=== PATIENT | female | born 1940 | race Caucasian/White ===

== ENCOUNTER 2016-11-02 07:28 | Inpatient (IN) | payer MEDICARE ==
--- NOTE | ~2016-11-02 | DS ---
Discharge Summary [place] [id number] [place]. [address] NAME: ANIL WALTER : 36 STATUS : DIS IN PAT#: [id number] AGE: 76 ADM/REG DATE : 11/02/16 MR#: [id number] REPORT SERV DATE: 11/13/16 DICTATED BY: DATE: REPORT STATUS : Draft TRANSCRIBED BY: MODL DATE: 11/12/16 ADMISSION DATE: 11/02/2016 DISCHARGE DATE: 11/12/2016 DISCHARGE DIAGNOSES: 1. Dysphagia/esophagitis/gastric ulcer/hiatal hernia. 2. Chronic obstructive pulmonary disease. 3. Hypertension. 4. Bipolar. 5. Acute kidney injury. 6. Debility. 7. Hyperkalemia. 8. Tobacco abuse. DISCHARGE MEDICATIONS: Include Norvasc 10 mg p.o. daily, Habitrol 21 mg topical patch daily, Protonix 40 mg p.o. b.i.d., Seroquel 50 mg p.o. at bedtime, Dulera 200/5 mcg two puffs inhalation b.i.d., MiraLAX one packet p.o. daily p.r.n. constipation, albuterol MDI 90 mcg/actuation two puffs q.4-6 hours p.r.n. for shortness of breath. CONSULTING PHYSICIAN: Include Dr. Pancho Jimenez with GI Medicine. For full H and P, please refer to Dr. Akira Acosta's dictation on 11/02/2016. Please also see consultation report from Dr. Dom Billings as well as Dr. Blane Ramírez. Please also see Lucy Coreas's interim discharge summary on 11/10/2016. PROCEDURES: The patient underwent an EGD on 11/03/2016, which demonstrated esophagitis, gastric ulcer, hiatal hernia. HOSPITAL COURSE/PROBLEM LIST: 1. Dysphagia, esophagitis, gastric ulcer, hiatal hernia. I will continue the patient on Protonix p.o. after discharge, and the patient will follow up with GI medicine in three months. 2. COPD. The patient reports no home medications when she came in. She smoked one pack per day. I discussed smoking cessation at length and we will continue her 21 mg nicotine patch after discharge. I will also continue her Dulera as well as albuterol MDI. 3. Hypertension. This is controlled with a systolic blood pressure between 100s and 140s with amlodipine, which I will continue upon discharge. 4. Bipolar. Dr. Blane Ramírez was consulted and prescribed the patient's Seroquel and mirtazapine, which he wrote prescriptions for. She will follow up with mental health post discharge. 5. Acute kidney injury. Creatinine today is stable at 1.23. We will make an appointment for her with her primary care provider in one to two weeks as well as followup BMP to monitor creatinine prior to her appointment. 6. Debility. PT evaluated the patient and recommended inpatient rehab. We set this up with [facility]; however, the patient does not want to go to Discharge Summary [address] [place]. [address] NAME: ANIL WALTER : 38 STATUS : DIS IN PAT#: [id number] AGE: 76 ADM/REG DATE : 11/02/16 MR#: [id number] REPORT SERV DATE: 11/13/16 DICTATED BY: DATE: REPORT STATUS : Draft TRANSCRIBED BY: NANCY DATE: 11/12/16 inpatient rehab. She would like to be discharged home with her son, so we will set up home health physical therapy for her. I discussed that this is not the best treatment plan, but if this is what she wants, this is what we will do. 7. Hyperkalemia. Today, the patient's potassium is 4.9 and I will follow up with a BMP prior to PCP appointment. 8. Tobacco abuse. Again, I discussed tobacco sensation, and I will continue the patient's nicotine patch post discharge. This discharge took greater than 30 minutes for medication reconciliation, prescription writing, coordinating with case management for discharge planning. DICTATED BY: CHELA Mayfield/NANCY Ramón Nuñez NP / [id number] CC: Akira Acosta MD
--- NOTE | ~2016-11-02 | HP ---
History And Physical [place] [id number] [facility] [place]. [address] NAME: ANIL WALTER : 38 STATUS : ADM IN [facility]#: [id number] AGE: 76 ADM/REG DATE : 11/02/16 MR#: [id number] REPORT SERV DATE: 11/02/16 DICTATED BY: CLAUS GIVENS DATE: 11/02/16 REPORT STATUS : Draft TRANSCRIBED BY: MODL DATE: 11/02/16 DATE OF ADMISSION: 11/02/2016 REASON FOR ADMISSION: Dehydration, hypernatremia, and dysphagia. CHIEF COMPLAINT: "I have not been able to eat or drink anything in three days." HISTORY OF PRESENT ILLNESS: A 76-year-old white female with a history of bipolar disorder, COPD, does not follow up with any primary care doctor. She is not on any medications. She lives at home alone. She has not been able to eat or drink anything in the past three days. She denies painful swallowing, but just says she cannot get anything past her throat. She also complains of some chronic back pain, but that she has not been eating and drinking, she has felt very dehydrated, and that is what made her present to the [facility] ER. She admits to some nausea, vomiting, and gagging, but denies any fever, chills, diarrhea, chest pain, or shortness of breath. Of note, she is a very poor historian and some of her past medical history had to be obtained from reviewing previous admissions. PAST MEDICAL HISTORY: Hypertension, bipolar disorder, and COPD. PAST SURGICAL HISTORY: She had a left nephrectomy secondary to possible kidney cancer and a cholecystectomy. SOCIAL HISTORY: She smokes one pack per day when she can get cigarettes. She denies any illegal drug use or alcohol. She is of around 18 years. She has one son, one son in snf, and one daughter that lives maybe in [place]. FAMILY HISTORY: Denies any cancer. MEDICATIONS: None. ALLERGIES: NONE. PHYSICAL EXAMINATION: VITAL SIGNS: Blood pressure is 168/56, temperature is 98, pulse is 85, respirations 17, sat 94% on room air. GENERAL: She is no acute distress. Mildly ill appearing. Alert and oriented x4. HEENT: Normocephalic and atraumatic head. Extraocular muscles are intact. Oropharynx is clear. NECK: Supple. No JVD. CARDIAC: Regular rhythm. No murmurs, rubs, or gallops. PULMONARY: Coarse breath sounds. No wheezing. ABDOMEN: Soft, nontender, and nondistended. Positive bowel sounds. EXTREMITIES: Show no clubbing, cyanosis, or edema. NEUROLOGIC: No focal deficits. SKIN: Warm and dry. PSYCHIATRIC: The patient is cooperative. Mood is appropriate. History And Physical [address] [address] NAME: ANIL WALTER : 38 STATUS : ADM IN PAT#: [id number] AGE: 76 ADM/REG DATE : 11/02/16 MR#: [id number] REPORT SERV DATE: 11/02/16 DICTATED BY: CLAUS GIVENS. DATE: 11/02/16 REPORT STATUS : Draft TRANSCRIBED BY: NANCY DATE: 11/02/16 LABORATORY DATA: Show a normal CBC. Sodium is 150, chloride is 117. Alkaline phosphatase is 161. Chest x-ray shows chronic bronchitis. CT scan of the abdomen and pelvis without contrast shows hiatal hernia, bilateral adrenal adenomas similar to previous scan, and status post left nephrectomy. IMPRESSION: 1. Hypernatremia. 2. Dehydration. 3. Dysphagia with symptoms. 4. Chronic obstructive pulmonary disease without exacerbation. 5. Benign adrenal adenoma. 6. History of left nephrectomy. 7. Hypertension. 8. Bipolar disorder. PLAN: Plan is to do IV fluids, start her on PPI, start Dulera along with amlodipine and Seroquel. Consult unattached GI Medicine to evaluate for an EGD with likely dilation. She thinks she had a heat set operator at some point in time in [place], but cannot remember how long it has been since she saw him and who did not remember the name. The patient is a DNR/DNI. MARIE/NANCY Claus Givens MD / [id number] CC: Claus Givens MD
--- NOTE | ~2016-11-02 | EGD ---
EGD REPORT [facility] [address] [place] [address] NAME: ANIL WALTER : 38 STATUS : ADM IN PAT#: [id number] AGE: 76 ADM/REG DATE : 11/02/16 MR#: [id number] REPORT SERV DATE: 11/03/16 DICTATED BY: PANCHO MEDINA DATE: 11/03/16 REPORT STATUS : Draft TRANSCRIBED BY: [facility] DATE: 11/03/16 Endoscopy Center Patient Name: Anil Walter Date of : 1940 Attending MD: PANCHO MEDINA MD Procedure Date No Time: 11/03/2016 Procedure: Upper GI endoscopy Indications: Dysphagia Medicines: Monitored Anesthesia Care Complications: No immediate complications. Estimated blood loss: Minimal. Procedure: Pre-Anesthesia Assessment: - ASA Grade Assessment: III - A patient with severe systemic disease. After obtaining informed consent, the endoscope was passed under direct vision. Throughout the procedure, the patient's blood pressure, pulse, and oxygen saturations were monitored continuously. The GIF [id number] was introduced through the mouth, and advanced to the second part of duodenum. The upper GI endoscopy was accomplished without difficulty. The patient tolerated the procedure well. Findings: LA Grade C (one or more mucosal breaks continuous between tops of 2 or more mucosal folds, less than 75% circumference) esophagitis with no bleeding was found at the gastroesophageal junction. A medium-sized hiatus hernia was present. One non-bleeding cratered gastric ulcer with no stigmata of bleeding was found in the gastric antrum. The lesion was 8 mm in largest dimension. Biopsies were taken with a cold forceps for Helicobacter pylori testing. Estimated blood loss was minimal. The examined duodenum was normal. The cardia and gastric fundus were normal on retroflexion. Impression: - LA Grade C reflux esophagitis. - Hiatus hernia. - Gastric ulcer with clean base. Biopsied. Recommendation: - Return patient to [facility] for [facility] care. - Clear liquid diet today. - Use Protonix (pantoprazole) 40 mg PO BID for 12 weeks. - Await pathology results. - Return to GI clinic in 3 months. EGD REPORT [address] [address] NAME: ANIL WALTER : 38 STATUS : ADM IN [facility]#: [id number] AGE: 76 ADM/REG DATE : 11/02/16 MR#: [id number] REPORT SERV DATE: 11/03/16 DICTATED BY: PANCHO MEDINA DATE: 11/03/16 REPORT STATUS : Draft TRANSCRIBED BY: [email or web address] DATE: 11/03/16 Procedure Code(s): --- Professional --- 29585, Esophagogastroduodenoscopy, flexible, transoral; with biopsy, single or multiple Diagnosis Code(s): --- Professional --- K21.0, Gastro-esophageal reflux disease with esophagitis K44.9, Diaphragmatic hernia without obstruction or gangrene K25.9, Gastric ulcer, unspecified as acute or chronic, without hemorrhage or perforation R13.10, Dysphagia, unspecified CPT copyright 2013 [employer]. All rights reserved. The codes documented in this report are preliminary and upon clinical coder review may be revised to meet current compliance requirements. Pancho Medina MD PANCHO MEDINA MD 11/03/2016 3:31 PM This report has been signed electronically. Number of Addenda: 0 Note Initiated On: 11/03/2016 3:07 PM Scope Withdrawal Time 0 hours 0 minutes 0 seconds [address] [place] [address]
--- NOTE | ~2016-11-02 | IDS ---
Interim Discharge Summary [facility] [address] [place]. [address] NAME: ANIL WALTER : 38 STATUS : ADM IN [facility]#: [id number] AGE: 76 ADM/REG DATE : 11/02/16 MR#: [id number] REPORT SERV DATE: 11/10/16 DICTATED BY: PENNIE COREAS DATE: 11/10/16 REPORT STATUS : Draft TRANSCRIBED BY: MODJoey DATE: 11/10/16 ADMISSION DATE: 11/02/2016 DISCHARGE DATE: DATE OF DISCHARGE: Unknown. DATE OF INTERIM NOTE: 11/10/2016. INTERIM DIAGNOSES: 1. Dysphagia/esophagitis, on Protonix for approximately three weeks. 2. Chronic obstructive pulmonary disease without exacerbation, stable. 3. Hypertension, stable. 4. Bipolar disorder. 5. Acute kidney injury. 6. Debility. CONSULTATION: GI, Dr. Dom Billings, 11/02/2016. PROCEDURES AND IMAGIN. Chest x-ray on 11/02/2016; impression, chronic bronchitic pattern. No acute infiltrate or acute finding. 2. CT abdomen and pelvis on 11/02/2016; impression, the patient's pain is not identified with certainty and there is no acute finding on non-CT examination of the abdomen. Hiatal hernia and bilateral benign adrenal adenomas are similar to previous. Status post left nephrectomy, there is no CT evidence of recurrence. COURSE OF HOSPITAL STAY: Please refer to history and physical dictated by Dr. Acosta on 11/22/2016 as well as consultation note by Dr. Billings. This patient is a 76-year-old female with a history of bipolar, COPD, and hypertension. The patient presented to [facility] Emergency Room with complaints of dehydration and difficulty swallowing. Prior to this admission, the patient stated that she was unable to eat or drink for approximately three days. She is stating she was having painful swallowing. The patient was admitted to the hospital for further evaluation. 1. Dysphagia/esophagitis. GI was consulted. Imaging was obtained. The patient did undergo an EGD on 11/03/2016, which showed LA grade C reflux esophagitis. Hiatal hernia. Gastric ulcer with a clean base was biopsied. The patient was started on Protonix and will continue Protonix for approximately three weeks. The patient at this time is tolerating a GI soft diet. She denies any difficulty swallowing. 2. COPD without exacerbation. Respiratory is following the patient at this time. She is on 2 L of nasal cannula, O2 sats of 96%. 3. Hypertension. The patient denies being on medication. she does present with a history of hypertension. She is on Norvasc 10 mg p.o. daily. 4. Bipolar. The patient does present with a history of bipolar. Denies being on medication. At this time, she is on Seroquel 25 mg a.m., 50 mg at bedtime. She is tolerating it well. Interim Discharge Summary [id number] [facility] [place]. [address] NAME: ANIL WALTER : 38 STATUS : ADM IN [facility]#: [id number] AGE: 76 ADM/REG DATE : 11/02/16 MR#: [id number] REPORT SERV DATE: 11/10/16 DICTATED BY: PENNIE COREAS DATE: 11/10/16 REPORT STATUS : Draft TRANSCRIBED BY: NANCY DATE: 11/10/16 5. Acute kidney injury, unsure if the patient does have chronic kidney disease. BUN is 33, creatinine is 1.36. We will recheck labs in a.m. The patient encouraged fluids. 6. Debility. The patient has had complaints of weakness stating that she has been using a wheelchair at home. Physical Therapy has evaluated the patient and recommended residential facility. reservation manager is working with the patient regarding placement. DISCHARGE PLANNING: The patient has been living in an extended stay hotel. She lives with her son who was recently incarcerated. Has been unable at this time to place patient due to discharge planning. reservation manager is working with patient regarding placement. [facility]/NANCY Pennie Coreas NP / [id number] CC: Akira Acosta MD NO PCP
--- NOTE | ~2016-11-02 | CN ---
Consultation Report [place] [place]. [address] NAME: ANIL WALTER : 38 STATUS : ADM IN [facility]#: [id number] AGE: 76 ADM/REG DATE : 11/02/16 MR#: [id number] REPORT SERV DATE: 11/02/16 DICTATED BY: DOM BILLINGS DATE: 11/02/16 REPORT STATUS : Draft TRANSCRIBED BY: MODL DATE: 11/02/16 GI CONSULTATION DATE OF CONSULTATION: 11/02/2016 REASON FOR CONSULTATION: GI consult regarding dysphagia. HISTORY OF PRESENT ILLNESS: This is a 76-year-old woman, who presented to the emergency room with increasing difficulty swallowing. Her dysphagia has been present for three weeks and is for both liquids and solids. She has had intermittent nausea with nonbloody emesis, as well as GERD symptoms with acid regurgitation. No abdominal pain, stools normal, no blood. No history of endoscopy. ALLERGIES: PENICILLIN, SULFA, CODEINE, AND GRISEOFULVIN. HOME MEDICATIONS: None. MEDICAL HISTORY: Left nephrectomy for renal cell carcinoma. SOCIAL HISTORY: She smokes, but does not use alcohol significantly. FAMILY HISTORY: Negative for GI malignancy. REVIEW OF SYSTEMS: A complete review of systems was obtained and negative except that noted in the history of present illness. PHYSICAL EXAMINATION: VITAL SIGNS: She is currently afebrile. Temperature 97.5, pulse 67, respirations 15, and blood pressure 137/60. HEENT: Sclerae anicteric. NECK: Supple without lymphadenopathy. Pharynx is pink without exudate. LUNGS: Clear to auscultation bilaterally. HEART: Regular rate and rhythm. S1 and S2 heard without rubs or gallops. ABDOMEN: Normal bowel sounds. Belly is soft, nontender, nondistended without hepatosplenomegaly. EXTREMITIES: No pedal edema or rash. NEUROLOGIC: Alert oriented without focal deficit. Muscle exam is nontender. DATA: White blood cell count 7.4, hematocrit 38.6, MCV 93.5, platelets 313, BUN is 17, creatinine 1.0. Liver tests normal except an alkaline phosphatase of 161, and lipase 117. IMPRESSION: Dysphagia in the setting of chronic gastroesophageal reflux disease, question stricture. Consultation Report [address]. [address] NAME: ANIL WALTER DOB: [birth year] STATUS : ADM IN PAT#: [id number] AGE: 76 ADM/REG DATE : 11/02/16 MR#: [id number] REPORT SERV DATE: 11/02/16 DICTATED BY: DOM BILLINGS DATE: 11/02/16 REPORT STATUS : Draft TRANSCRIBED BY: NANCY DATE: 11/02/16 RECOMMENDATIONS: 1. Protonix twice daily. 2. Liquid diet for now. 3. An EGD to follow. 4. CC/BRYANNAL Dom Billings M.D. / [id number] CC: Akira Acosta MD
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
[2016-11-02 06:24] LABS: BASOPHILS 0.8 %; BASOPHILS ABSOLUTE 0.06 10/3/uL (0.0-0.16); EOSINOPHILS 3.6 %; EOSINOPHILS ABSOLUTE 0.27 10/3/uL (0.0-0.53); ER CBC TAT 0 Hrs 03 Mins; HEMATOCRIT 38.6 % (36.0-48.0); HEMOGLOBIN 12.7 g/dL (12.0-16.0); IMMATURE GRANULOCYTES 0.1 %; IMMATURE GRANULOCYTES ABSOLUTE 0.01 10/3/uL (0.0-0.11); LYMPHOCYTES 14.5 %; LYMPHOCYTES ABSOLUTE 1.07 10/3/uL (0.67-4.30); MANUAL DIFF NO %; MEAN CORPUS HGB CONC 32.9 g/dL (32.0-36.0); MEAN CORPUSCULAR HEMOGLOB 30.8 pg (26.0-34.0); MEAN CORPUSCULAR VOLUME 93.5 fL (80-100); MEAN PLATELET VOLUME 10.6 fL (9.2-13.0); MONOCYTES 6.2 %; MONOCYTES ABSOLUTE 0.46 10/3/uL (0.21-1.20); NEUTROPHILS 74.8 %; NEUTROPHILS ABSOLUTE 5.53 10/3/uL (2.02-8.40); PLATELET COUNT 313 10/3/uL (150-400); RBC DISTRIBUTION WIDTH 15.3 % (12.0-16.0); RED CELL COUNT 4.13 10/6/uL (4.0-5.6); WHITE BLOOD CELLS 7.4 10/3/uL (4.5-10.5)
[2016-11-02 06:39] LABS: A/G RATIO 0.9 (0.7-1.9); ALBUMIN 3.4 G/DL (3.5-5.0); ALKALINE PHOSPHATASE 161 U/L (45-117); BUN (BLOOD UREA NITROGEN) 17 MG/DL (6-23); CHLORIDE, SERUM 117 MMOL/L (96-112); CO2 (CARBON DIOXIDE) 26 MMOL/L (24-34); GFR AFRICAN AMERICAN 62 ML/MIN (>=60); GFR NON AFRICAN AMERICAN 54 ML/MIN (>=60); GLOBULIN 3.8 G/DL (2.5-4.1); GLUCOSE, SERUM 99 MG/DL (60-99); SGOT(AST) 20 U/L (5-40); SGPT(ALT) 11 U/L (5-65); SODIUM, SERUM 150 MMOL/L (135-148); TOTAL BILIRUBIN 0.4 MG/DL (0-1.2); TOTAL PROTEIN 7.2 G/DL (6.0-8.5)
[~2016-11-02 07:28] MED LIST: ACCUNE1 INH; NORV10 PO; PRILOSEC40 MG PO; PROAMAT5 PO; SEROQUEL200 MG PO; SPIRIVA INH; SYMBICORT 160/41 INH INH; ZOL50 PO
[2016-11-02] MEDS ORDERED: *DENIES (09:08)
[2016-11-02 14:49] LABS: INTERNATIONAL NORMAL RATI 1.2 UNITS (-); PARTIAL THROMBO TIME 24.5 SEC (22.5-37.2); PROTIME (NOT ORD) 14.7 SEC (12.0-14.5)
[2016-11-03 04:46] LABS: BASOPHILS 0.6 %; BASOPHILS ABSOLUTE 0.04 10/3/uL (0.0-0.16); EOSINOPHILS 5.3 %; EOSINOPHILS ABSOLUTE 0.35 10/3/uL (0.0-0.53); HEMATOCRIT 32.2 % (36.0-48.0); HEMOGLOBIN 10.5 g/dL (12.0-16.0); IMMATURE GRANULOCYTES 0.2 %; IMMATURE GRANULOCYTES ABSOLUTE 0.01 10/3/uL (0.0-0.11); LYMPHOCYTES 24.1 %; MEAN CORPUS HGB CONC 32.6 g/dL (32.0-36.0); MEAN CORPUSCULAR HEMOGLOB 30.1 pg (26.0-34.0); MEAN CORPUSCULAR VOLUME 92.3 fL (80-100); MEAN PLATELET VOLUME 10.4 fL (9.2-13.0); MONOCYTES 7.1 %; MONOCYTES ABSOLUTE 0.47 10/3/uL (0.21-1.20); NEUTROPHILS 62.7 %; NEUTROPHILS ABSOLUTE 4.17 10/3/uL (2.02-8.40); PLATELET COUNT 239 10/3/uL (150-400); RBC DISTRIBUTION WIDTH 14.8 % (12.0-16.0); RED CELL COUNT 3.49 10/6/uL (4.0-5.6); WHITE BLOOD CELLS 6.6 10/3/uL (4.5-10.5)
[2016-11-03 04:47] LABS: MANUAL DIFF NO %
[2016-11-03 04:57] LABS: CALCIUM, SERUM 8.1 MG/DL (8.5-10.4); CHLORIDE, SERUM 108 MMOL/L (96-112); CO2 (CARBON DIOXIDE) 25 MMOL/L (24-34); CREATININE 0.89 MG/DL (0.55-1.02); GFR AFRICAN AMERICAN 72 ML/MIN (>=60); GFR NON AFRICAN AMERICAN 62 ML/MIN (>=60); GLUCOSE, SERUM 107 MG/DL (60-99); PHOSPHORUS, SERUM 2.6 MG/DL (2.5-4.5); POTASSIUM, SERUM 3.2 MMOL/L (3.5-5.3)
[2016-11-03 05:00] LABS: BUN (BLOOD UREA NITROGEN) 11 MG/DL (6-23); SODIUM, SERUM 139 MMOL/L (135-148)
[2016-11-04 04:27] LABS: BASOPHILS 0.4 %; BASOPHILS ABSOLUTE 0.03 10/3/uL (0.0-0.16); EOSINOPHILS 4.7 %; EOSINOPHILS ABSOLUTE 0.32 10/3/uL (0.0-0.53); HEMATOCRIT 34.9 % (36.0-48.0); HEMOGLOBIN 11.7 g/dL (12.0-16.0); IMMATURE GRANULOCYTES 0.1 %; IMMATURE GRANULOCYTES ABSOLUTE 0.01 10/3/uL (0.0-0.11); LYMPHOCYTES 11.7 %; MANUAL DIFF NO %; MEAN CORPUS HGB CONC 33.5 g/dL (32.0-36.0); MEAN CORPUSCULAR VOLUME 92.6 fL (80-100); MEAN PLATELET VOLUME 10.3 fL (9.2-13.0); MONOCYTES 5.1 %; MONOCYTES ABSOLUTE 0.35 10/3/uL (0.21-1.20); NEUTROPHILS ABSOLUTE 5.32 10/3/uL (2.02-8.40); PLATELET COUNT 257 10/3/uL (150-400); RBC DISTRIBUTION WIDTH 14.4 % (12.0-16.0); RED CELL COUNT 3.77 10/6/uL (4.0-5.6); WHITE BLOOD CELLS 6.8 10/3/uL (4.5-10.5)
[2016-11-04 04:37] LABS: BUN (BLOOD UREA NITROGEN) 12 MG/DL (6-23); CALCIUM, SERUM 8.5 MG/DL (8.5-10.4); CHLORIDE, SERUM 109 MMOL/L (96-112); CO2 (CARBON DIOXIDE) 25 MMOL/L (24-34); CREATININE 1.04 MG/DL (0.55-1.02); GFR AFRICAN AMERICAN 60 ML/MIN (>=60); GFR NON AFRICAN AMERICAN 51 ML/MIN (>=60); GLUCOSE, SERUM 88 MG/DL (60-99); PHOSPHORUS, SERUM 3.7 MG/DL (2.5-4.5); POTASSIUM, SERUM 3.4 MMOL/L (3.5-5.3); SODIUM, SERUM 142 MMOL/L (135-148)
[2016-11-05 06:55] LABS: BASOPHILS 0.4 %; BASOPHILS ABSOLUTE 0.02 10/3/uL (0.0-0.16); EOSINOPHILS 5.1 %; EOSINOPHILS ABSOLUTE 0.29 10/3/uL (0.0-0.53); HEMATOCRIT 35.9 % (36.0-48.0); HEMOGLOBIN 11.9 g/dL (12.0-16.0); IMMATURE GRANULOCYTES 0.2 %; IMMATURE GRANULOCYTES ABSOLUTE 0.01 10/3/uL (0.0-0.11); LYMPHOCYTES 19.5 %; LYMPHOCYTES ABSOLUTE 1.11 10/3/uL (0.67-4.30); MEAN CORPUS HGB CONC 33.1 g/dL (32.0-36.0); MEAN CORPUSCULAR HEMOGLOB 30.7 pg (26.0-34.0); MEAN CORPUSCULAR VOLUME 92.5 fL (80-100); MEAN PLATELET VOLUME 10.4 fL (9.2-13.0); MONOCYTES 8.4 %; MONOCYTES ABSOLUTE 0.48 10/3/uL (0.21-1.20); NEUTROPHILS 66.4 %; NEUTROPHILS ABSOLUTE 3.79 10/3/uL (2.02-8.40); PLATELET COUNT 270 10/3/uL (150-400); RBC DISTRIBUTION WIDTH 14.7 % (12.0-16.0); RED CELL COUNT 3.88 10/6/uL (4.0-5.6); WHITE BLOOD CELLS 5.7 10/3/uL (4.5-10.5)
[2016-11-05 06:56] LABS: MANUAL DIFF NO %
[2016-11-05 09:00] LABS: BUN (BLOOD UREA NITROGEN) 12 MG/DL (6-23); CALCIUM, SERUM 8.9 MG/DL (8.5-10.4); CHLORIDE, SERUM 107 MMOL/L (96-112); CO2 (CARBON DIOXIDE) 26 MMOL/L (24-34); CREATININE 1.06 MG/DL (0.55-1.02); GFR AFRICAN AMERICAN 58 ML/MIN (>=60); GFR NON AFRICAN AMERICAN 50 ML/MIN (>=60); GLUCOSE, SERUM 99 MG/DL (60-99); SODIUM, SERUM 137 MMOL/L (135-148)
[2016-11-05 09:01] LABS: POTASSIUM, SERUM 4.3 MMOL/L (3.5-5.3)
[2016-11-07 04:56] LABS: BASOPHILS 0.3 %; BASOPHILS ABSOLUTE 0.02 10/3/uL (0.0-0.16); EOSINOPHILS 6.4 %; EOSINOPHILS ABSOLUTE 0.39 10/3/uL (0.0-0.53); HEMATOCRIT 32.7 % (36.0-48.0); HEMOGLOBIN 10.6 g/dL (12.0-16.0); IMMATURE GRANULOCYTES 0.5 %; IMMATURE GRANULOCYTES ABSOLUTE 0.03 10/3/uL (0.0-0.11); LYMPHOCYTES 18.2 %; LYMPHOCYTES ABSOLUTE 1.11 10/3/uL (0.67-4.30); MEAN CORPUS HGB CONC 32.4 g/dL (32.0-36.0); MEAN CORPUSCULAR HEMOGLOB 30.4 pg (26.0-34.0); MEAN CORPUSCULAR VOLUME 93.7 fL (80-100); MONOCYTES 5.2 %; MONOCYTES ABSOLUTE 0.32 10/3/uL (0.21-1.20); NEUTROPHILS 69.4 %; NEUTROPHILS ABSOLUTE 4.23 10/3/uL (2.02-8.40); PLATELET COUNT 265 10/3/uL (150-400); RBC DISTRIBUTION WIDTH 15.4 % (12.0-16.0); RED CELL COUNT 3.49 10/6/uL (4.0-5.6); WHITE BLOOD CELLS 6.1 10/3/uL (4.5-10.5)
[2016-11-07 05:02] LABS: MANUAL DIFF NO %
[2016-11-07 05:21] LABS: CALCIUM, SERUM 8.8 MG/DL (8.5-10.4); CHLORIDE, SERUM 100 MMOL/L (96-112); CREATININE 1.07 MG/DL (0.55-1.02); GFR AFRICAN AMERICAN 58 ML/MIN (>=60); GFR NON AFRICAN AMERICAN 50 ML/MIN (>=60); PHOSPHORUS, SERUM 1.9 MG/DL (2.5-4.5); SODIUM, SERUM 137 MMOL/L (135-148)
[2016-11-07 05:27] LABS: BUN (BLOOD UREA NITROGEN) 24 MG/DL (6-23); CO2 (CARBON DIOXIDE) 32 MMOL/L (24-34); GLUCOSE, SERUM 70 MG/DL (60-99)
[2016-11-07 19:55] LABS: ASCORBIC ACID (UR NOT ORDER) 20 (NEG); BILIRUBIN, URINE NEGATIVE (NEG); KETONE, URINE NEGATIVE (NEG); LEUKOCYTE ESTERASE(NOT OR TRACE (NEG); WBC (NOT ORDERED) (RFLEX) 3 (0-5)
[2016-11-08 06:43] LABS: BASOPHILS 0.2 %; BASOPHILS ABSOLUTE 0.01 10/3/uL (0.0-0.16); EOSINOPHILS 6.1 %; EOSINOPHILS ABSOLUTE 0.38 10/3/uL (0.0-0.53); HEMOGLOBIN 11.9 g/dL (12.0-16.0); IMMATURE GRANULOCYTES 0.3 %; IMMATURE GRANULOCYTES ABSOLUTE 0.02 10/3/uL (0.0-0.11); LYMPHOCYTES 20.2 %; LYMPHOCYTES ABSOLUTE 1.25 10/3/uL (0.67-4.30); MEAN CORPUS HGB CONC 32.8 g/dL (32.0-36.0); MEAN CORPUSCULAR HEMOGLOB 30.5 pg (26.0-34.0); MEAN CORPUSCULAR VOLUME 93.1 fL (80-100); MONOCYTES 6.1 %; MONOCYTES ABSOLUTE 0.38 10/3/uL (0.21-1.20); NEUTROPHILS 67.1 %; NEUTROPHILS ABSOLUTE 4.14 10/3/uL (2.02-8.40); PLATELET COUNT 257 10/3/uL (150-400); RBC DISTRIBUTION WIDTH 15.2 % (12.0-16.0); WHITE BLOOD CELLS 6.2 10/3/uL (4.5-10.5)
[2016-11-08 06:52] LABS: BUN (BLOOD UREA NITROGEN) 28 MG/DL (6-23); CALCIUM, SERUM 9.2 MG/DL (8.5-10.4); CHLORIDE, SERUM 100 MMOL/L (96-112); CO2 (CARBON DIOXIDE) 31 MMOL/L (24-34); CREATININE 1.24 MG/DL (0.55-1.02); GFR AFRICAN AMERICAN 48 ML/MIN (>=60); GFR NON AFRICAN AMERICAN 42 ML/MIN (>=60); GLUCOSE, SERUM 110 MG/DL (60-99); HEMATOCRIT 36.3 % (36.0-48.0); MANUAL DIFF NO %; PHOSPHORUS, SERUM 2.1 MG/DL (2.5-4.5); POTASSIUM, SERUM 5.1 MMOL/L (3.5-5.3); SODIUM, SERUM 137 MMOL/L (135-148)
[2016-11-09 08:20] LABS: BASOPHILS 0.5 %; BASOPHILS ABSOLUTE 0.03 10/3/uL (0.0-0.16); EOSINOPHILS 6.2 %; EOSINOPHILS ABSOLUTE 0.39 10/3/uL (0.0-0.53); HEMATOCRIT 35.1 % (36.0-48.0); HEMOGLOBIN 11.3 g/dL (12.0-16.0); IMMATURE GRANULOCYTES 0.3 %; IMMATURE GRANULOCYTES ABSOLUTE 0.02 10/3/uL (0.0-0.11); LYMPHOCYTES 20.5 %; MEAN CORPUS HGB CONC 32.2 g/dL (32.0-36.0); MEAN CORPUSCULAR HEMOGLOB 29.9 pg (26.0-34.0); MEAN CORPUSCULAR VOLUME 92.9 fL (80-100); MEAN PLATELET VOLUME 10.8 fL (9.2-13.0); MONOCYTES ABSOLUTE 0.32 10/3/uL (0.21-1.20); NEUTROPHILS 67.5 %; NEUTROPHILS ABSOLUTE 4.28 10/3/uL (2.02-8.40); PLATELET COUNT 299 10/3/uL (150-400); RBC DISTRIBUTION WIDTH 15.1 % (12.0-16.0); RED CELL COUNT 3.78 10/6/uL (4.0-5.6); WHITE BLOOD CELLS 6.3 10/3/uL (4.5-10.5)
[2016-11-09 08:21] LABS: MANUAL DIFF NO %
[2016-11-09 08:33] LABS: BUN (BLOOD UREA NITROGEN) 28 MG/DL (6-23); CALCIUM, SERUM 9.2 MG/DL (8.5-10.4); CHLORIDE, SERUM 101 MMOL/L (96-112); CO2 (CARBON DIOXIDE) 32 MMOL/L (24-34); CREATININE 1.27 MG/DL (0.55-1.02); GFR AFRICAN AMERICAN 47 ML/MIN (>=60); GFR NON AFRICAN AMERICAN 40 ML/MIN (>=60); GLUCOSE, SERUM 123 MG/DL (60-99); PHOSPHORUS, SERUM 2.6 MG/DL (2.5-4.5); POTASSIUM, SERUM 5.2 MMOL/L (3.5-5.3); SODIUM, SERUM 136 MMOL/L (135-148)
[2016-11-10 06:45] LABS: BASOPHILS 0.3 %; BASOPHILS ABSOLUTE 0.02 10/3/uL (0.0-0.16); EOSINOPHILS 6.9 %; EOSINOPHILS ABSOLUTE 0.42 10/3/uL (0.0-0.53); HEMATOCRIT 34.3 % (36.0-48.0); HEMOGLOBIN 11.4 g/dL (12.0-16.0); IMMATURE GRANULOCYTES 0.3 %; IMMATURE GRANULOCYTES ABSOLUTE 0.02 10/3/uL (0.0-0.11); LYMPHOCYTES 22.5 %; LYMPHOCYTES ABSOLUTE 1.38 10/3/uL (0.67-4.30); MEAN CORPUS HGB CONC 33.2 g/dL (32.0-36.0); MEAN CORPUSCULAR HEMOGLOB 30.7 pg (26.0-34.0); MEAN CORPUSCULAR VOLUME 92.5 fL (80-100); MEAN PLATELET VOLUME 10.6 fL (9.2-13.0); MONOCYTES 6.7 %; MONOCYTES ABSOLUTE 0.41 10/3/uL (0.21-1.20); NEUTROPHILS 63.3 %; NEUTROPHILS ABSOLUTE 3.87 10/3/uL (2.02-8.40); PLATELET COUNT 283 10/3/uL (150-400); RBC DISTRIBUTION WIDTH 15.1 % (12.0-16.0); RED CELL COUNT 3.71 10/6/uL (4.0-5.6); WHITE BLOOD CELLS 6.1 10/3/uL (4.5-10.5)
[2016-11-10 06:48] LABS: MANUAL DIFF NO %
[2016-11-10 06:52] LABS: CHLORIDE, SERUM 99 MMOL/L (96-112); CO2 (CARBON DIOXIDE) 34 MMOL/L (24-34); CREATININE 1.36 MG/DL (0.55-1.02); GFR AFRICAN AMERICAN 43 ML/MIN (>=60); GFR NON AFRICAN AMERICAN 37 ML/MIN (>=60); POTASSIUM, SERUM 5.3 MMOL/L (3.5-5.3); SODIUM, SERUM 134 MMOL/L (135-148)
[2016-11-10 06:53] LABS: BUN (BLOOD UREA NITROGEN) 33 MG/DL (6-23); GLUCOSE, SERUM 97 MG/DL (60-99); PHOSPHORUS, SERUM 3.6 MG/DL (2.5-4.5)
[2016-11-11 09:10] LABS: BASOPHILS 0.4 %; BASOPHILS ABSOLUTE 0.03 10/3/uL (0.0-0.16); EOSINOPHILS 5.8 %; HEMATOCRIT 33.5 % (36.0-48.0); IMMATURE GRANULOCYTES 0.3 %; IMMATURE GRANULOCYTES ABSOLUTE 0.02 10/3/uL (0.0-0.11); LYMPHOCYTES 18.9 %; MEAN CORPUS HGB CONC 32.8 g/dL (32.0-36.0); MEAN CORPUSCULAR HEMOGLOB 30.6 pg (26.0-34.0); MEAN CORPUSCULAR VOLUME 93.3 fL (80-100); MEAN PLATELET VOLUME 10.9 fL (9.2-13.0); MONOCYTES 8.4 %; MONOCYTES ABSOLUTE 0.58 10/3/uL (0.21-1.20); NEUTROPHILS 66.2 %; NEUTROPHILS ABSOLUTE 4.54 10/3/uL (2.02-8.40); PLATELET COUNT 256 10/3/uL (150-400); RBC DISTRIBUTION WIDTH 15.1 % (12.0-16.0); RED CELL COUNT 3.59 10/6/uL (4.0-5.6); WHITE BLOOD CELLS 6.9 10/3/uL (4.5-10.5)
[2016-11-11 09:11] LABS: MANUAL DIFF NO %
[2016-11-11 09:15] LABS: BUN (BLOOD UREA NITROGEN) 35 MG/DL (6-23); CALCIUM, SERUM 8.7 MG/DL (8.5-10.4); CHLORIDE, SERUM 104 MMOL/L (96-112); CREATININE 1.24 MG/DL (0.55-1.02); GFR AFRICAN AMERICAN 48 ML/MIN (>=60); GFR NON AFRICAN AMERICAN 42 ML/MIN (>=60); GLUCOSE, SERUM 80 MG/DL (60-99); PHOSPHORUS, SERUM 3.4 MG/DL (2.5-4.5); POTASSIUM, SERUM 5.8 MMOL/L (3.5-5.3); SODIUM, SERUM 138 MMOL/L (135-148)
[2016-11-11 09:17] LABS: CO2 (CARBON DIOXIDE) 28 MMOL/L (24-34)
[2016-11-11 11:27] LABS: BUN (BLOOD UREA NITROGEN) 33 MG/DL (6-23); CALCIUM, SERUM 9.2 MG/DL (8.5-10.4); CHLORIDE, SERUM 104 MMOL/L (96-112); CO2 (CARBON DIOXIDE) 27 MMOL/L (24-34); CREATININE 1.24 MG/DL (0.55-1.02); GFR AFRICAN AMERICAN 48 ML/MIN (>=60); GFR NON AFRICAN AMERICAN 42 ML/MIN (>=60); GLUCOSE, SERUM 94 MG/DL (60-99); POTASSIUM, SERUM 4.8 MMOL/L (3.5-5.3); SODIUM, SERUM 138 MMOL/L (135-148)
[2016-11-12 05:21] LABS: BASOPHILS 0.5 %; BASOPHILS ABSOLUTE 0.04 10/3/uL (0.0-0.16); EOSINOPHILS 4.9 %; EOSINOPHILS ABSOLUTE 0.39 10/3/uL (0.0-0.53); HEMOGLOBIN 12.7 g/dL (12.0-16.0); IMMATURE GRANULOCYTES 0.3 %; IMMATURE GRANULOCYTES ABSOLUTE 0.02 10/3/uL (0.0-0.11); LYMPHOCYTES 20.5 %; LYMPHOCYTES ABSOLUTE 1.63 10/3/uL (0.67-4.30); MEAN CORPUS HGB CONC 32.5 g/dL (32.0-36.0); MEAN CORPUSCULAR HEMOGLOB 30.4 pg (26.0-34.0); MEAN CORPUSCULAR VOLUME 93.5 fL (80-100); MONOCYTES 6.5 %; MONOCYTES ABSOLUTE 0.52 10/3/uL (0.21-1.20); NEUTROPHILS 67.3 %; NEUTROPHILS ABSOLUTE 5.35 10/3/uL (2.02-8.40); RBC DISTRIBUTION WIDTH 14.9 % (12.0-16.0); RED CELL COUNT 4.18 10/6/uL (4.0-5.6)
[2016-11-12 05:22] LABS: HEMATOCRIT 39.1 % (36.0-48.0); MANUAL DIFF NO %; PLATELET COUNT 366 10/3/uL (150-400)
[2016-11-12 05:35] LABS: BUN (BLOOD UREA NITROGEN) 31 MG/DL (6-23); CALCIUM, SERUM 9.9 MG/DL (8.5-10.4); CHLORIDE, SERUM 101 MMOL/L (96-112); CO2 (CARBON DIOXIDE) 28 MMOL/L (24-34); CREATININE 1.23 MG/DL (0.55-1.02); GFR AFRICAN AMERICAN 49 ML/MIN (>=60); GFR NON AFRICAN AMERICAN 42 ML/MIN (>=60); GLUCOSE, SERUM 78 MG/DL (60-99); PHOSPHORUS, SERUM 3.2 MG/DL (2.5-4.5); POTASSIUM, SERUM 4.9 MMOL/L (3.5-5.3); SODIUM, SERUM 136 MMOL/L (135-148)
[2016-11-12] MEDS ORDERED: DULERA 200 MCG/13 GM INH (13:14)
[2016-11-12] MEDS ORDERED: NORV10 PO (13:14)
[2016-11-12] MEDS ORDERED: HABIT21 TOP (13:15)
[2016-11-12] MEDS ORDERED: VENTOLIN HFA INH (13:15)
[2016-11-12] MEDS ORDERED: PROTONIX PO (13:16)
== END 2016-11-12 18:15 | disposition home or self-care (01) | DRG 392 ==
LOC: ER 07:28 → 4EA 08:40
PROVIDERS: Internal Medicine; Nurse Practitioner Acute Care; Nurse Practitioner Adult Health; Specialist
PROC: 0DB68ZX Excision of Stomach, Via Natural or Artificial Opening Endoscopic, Diagnostic (ICD-10-PCS; principal; 2016-11-02)
DX: K21.0 Gastro-esophageal reflux disease with esophagitis (principal); N17.9 Acute kidney failure, unspecified; E87.0 Hyperosmolality and hypernatremia; J44.1 Chronic obstructive pulmonary disease with (acute) exacerbation; D35.00 Benign neoplasm of unspecified adrenal gland; I10 Essential (primary) hypertension; F31.9 Bipolar disorder, unspecified; K25.9 Gastric ulcer, unspecified as acute or chronic, without hemorrhage or perforation; K44.9 Diaphragmatic hernia without obstruction or gangrene; F17.210 Nicotine dependence, cigarettes, uncomplicated; Z66 Do not resuscitate; E87.5 Hyperkalemia
CPT/HCPCS: 71010; 74176; 80048; 80053; 80069; 81001; 83690; 83735; 84100; 85025; 85610; 85730; 88305; 93005; 94640; 96361; 96374; 97110-GP; 97116-GP; 97161-GP; 99285; A9270-GY; C9113; G8978-CK-GP; G8979-CJ-GP; J1885; J2405